=== PATIENT | male | born 1985 | race Two or more races ===

== ENCOUNTER 2021-01-20 00:52 | Emergency (ER) | payer SELFPAY ==
[~2021-01-20] VITALS: Ht 170.2 cm; Wt 81.8 kg
[2021-01-20] MEDS ORDERED: ONDANSETRON PF 4 MG/2 ML VIAL. IVP ONE (01:30)
[2021-01-20] MEDS ORDERED: MULTIVIT INFUSN,ADULT 4,VIT K 10 ML, THIAMINE INJ 100 MG, FOLIC ACID INJ 1 MG in IV NOR... IV ONE (01:45)
[2021-01-20 01:50] LABS: BASO % 0 % (0-3); EOS % 1 % (0-3); HEMATOCRIT 42.1 % (39.0-53.0); HEMOGLOBIN 14.7 g/dL (13.0-17.5); LYMPH # 1.6 x10^3/uL (1.0-4.8); LYMPH % 24 % (24-48); MEAN CORPUSCULAR HEMOGLOBIN 30 pg (25-35); MEAN CORPUSCULAR HGB CONC 35 g/dL (31-37); MEAN CORPUSCULAR VOLUME 85 fL (79-100); MONO # 0.3 x10^3/uL (0.0-1.1); MONO % 5 % (0-9); NEUT # 4.6 x10^3/uL (1.8-7.7); NEUT % 70 % (31-73); PLATELET COUNT 255 x10^3/uL (140-400); RED BLOOD COUNT 4.93 x10^6/uL (4.30-5.70); RED CELL DISTRIBUTION WIDTH 13.3 % (11.5-14.5); WHITE BLOOD COUNT 6.6 x10^3/uL (4.0-11.0)
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
--- NOTE | 2021-01-20 02:03 | RAD ---
INDICATION: Reason: injury / Spl. Instructions: / History: COMPARISON: None. IMPRESSION: Left humerus: 2 views obtained. No definite humerus fracture. Left forearm: 2 views obtained. No evidence of dislocation. Mild angulation of the radial head. Would correlate with pain in the region to ensure this is not sec ondary to a nondisplaced fracture. Limited evaluation of the elbow secondary to nondedicated imaging . Electronically signed by: Rasta Camara MD (01/20/2021 2:00 AM) [id number]
[2021-01-20 02:06] LABS: ALBUMIN 4.3 g/dL (3.4-5.0); ALBUMIN/GLOBULIN RATIO 1.1 (1.0-1.7); CALCIUM 8.3 mg/dL (8.5-10.1); CREATININE 1.1 mg/dL (0.7-1.3); GFR 75.7; POTASSIUM 3.6 mmol/L (3.5-5.1); TOTAL BILIRUBIN 0.2 mg/dL (0.2-1.0); TOTAL PROTEIN 8.1 g/dL (6.4-8.2)
[2021-01-20 03:28] LABS: BILIRUBIN,URINE NEGATIVE (NEG); CLARITY,URINE CLEAR; COLOR,URINE YELLOW; NITRITE,URINE NEGATIVE (NEG); PROTEIN,URINE NEGATIVE (NEG-TRACE); UROBILINOGEN,URINE 0.2 mg/dL (0.2 mg/dL)
[2021-01-20 03:35] LABS: BARBITURATES NEG (NEG); BENZODIAZEPINES NEG (NEG); CANNABINOIDS NEG (NEG); COCAINE NEG (NEG); METHADONE NEG (NEG); OPIATES NEG (NEG); PHENCYCLIDINE NEG (NEG)
[2021-01-20 03:42] LABS: BACTERIA,URINE 0 /HPF (0-FEW); RBC,URINE 0 /HPF (0-2)
[2021-01-20 04:39] LABS: AMPHETAMINE/METHAMPHETAMINE NEG (NEG)
[2021-01-20] MEDS ORDERED: METF500T16 PO (05:53)
[2021-01-20 06:05] VITALS: BP 127/78
== END 2021-01-20 06:49 | disposition home or self-care (01) ==
LOC: ER 00:52
DX: S59.902A Unspecified injury of left elbow, initial encounter (principal); F10.129 Alcohol abuse with intoxication, unspecified; Y90.8 Blood alcohol level of 240 mg/100 ml or more; E11.9 Type 2 diabetes mellitus without complications; X58.XXXA Exposure to other specified factors, initial encounter; Y93.89 Activity, other specified; Y92.89 Other specified places as the place of occurrence of the external cause; Y99.8 Other external cause status
CPT/HCPCS: 36415; 73060; 73090; 80053; 80307; 81001; 85025; 96365; 96375; 99284; G0480; J2405; J3411; J3490; J7030